=== PATIENT | female | born 1990 | race Caucasian/White ===

== ENCOUNTER 2017-02-26 16:36 | Emergency (ER) | payer OTHER ==
[~2017-02-26 16:36] MED LIST: AMOXICILLIN500 M1 PO; BACTRIM DS TABL1 TA1 PO; CLEOCIN HCL300 M1 PO; DICYCLOMINE HCL20 MG; DOXYCYCLINE150 MG PO; FLAGYL PO; LORTAB 5/500 TA1 TA1 PO; MOTRIN100 MG PO; NEXPLANON68 MG SQ; NO MEDICATIONS; PHENERGAN25 M1 PO; PHENERGAN25 MG PO; PRENATAL1 TA1 PO; PRILOSEC; TYLENOL #3 PO; ULTRAM PO; UNKNOWN BP MED; VOLTAREN50 MG PO; ZOFRAN; [UNRECOGNIZED DRUG - REMARK]
[2017-02-26] MEDS ORDERED: NO MEDICATIONS (16:47)
== END 2017-02-26 17:33 | disposition home or self-care (01) ==
LOC: SED 16:36
DX: H92.03 Otalgia, bilateral (principal)
CPT/HCPCS: 99283

== ENCOUNTER 2017-05-22 18:41 | Emergency (ER) | payer OTHER ==
[~2017-05-22] VITALS: Ht 170.2 cm; Wt 117.9 kg
--- NOTE | ~2017-05-22 | CT2 ---
[facility]. [facility] A Service of [facility] RADIOLOGY TEXT RESULTS PATIENT: OMAR NAIR LOCATION: SED : [birth year] UNIT #: [id number] AGE: [address]: Maria R Keating MD SEX: F ORDER DR: [id number] [address] [address] [id number] E MR#: [id number] Acc #: [id number] NAME: OMAR NAIR. : 1990 SEX: F STUDY DATE/TIME: 05/22/2017 22:36 UNIT: SED ROOM: STUDY DESCRIPTION: CT Abd and Pelv W Cont Attending Physician: Maria R Keating M.D. Ordering Physician: Maria R Keating M.D. Primary Care Physician: Tyson Alicia M.D. MEDICAL IMAGING REPORT This report is preliminary unless electronic signature is present. EXAM CT abdomen and pelvis with contrast 05/22/2017 HISTORY 27-year-old female with right lower quadrant abdominal pain for [address] days[address] abdomen and pelvis 07/06/2012. TECHNIQUE Helical scan performed through the abdomen and pelvis following administration of IV contrast. Coronal and sagittal reformatted images. This CT examination was performed with one or more of the following radiation dose reduction techniques: automatic exposure control, adjustment of mA and/or kV according to patient size, and iterative reconstruction. FINDINGS Visualized lung bases are unremarkable. The liver, spleen, pancreas, both adrenal glands, and both kidneys are within normal limits. Gallbladder surgically absent. Abdominal aorta normal in course and caliber without dissection. Small bowel is unremarkable without obstruction. Appendix not clearly visualized, but no pericecal inflammation. There is some minimal hazy inflammatory stranding in the fat anterior to the ascending colon. This is nonspecific and could be secondary to omental infarct or inflammation. Colon is otherwise unremarkable. No free fluid or free air. Urinary bladder, uterus, and adnexa are unremarkable. No free pelvic fluid. No acute bony abnormality. [facility] A Service of [facility] RADIOLOGY TEXT RESULTS PATIENT: OMAR NAIR LOCATION: SED : 92 UNIT #: [id number] AGE: [address]: Maria R Keating MD SEX: F ORDER DR: IMPRESSION 1. Appendix not clearly visualized. No pericecal inflammation. 2. Minimal hazy inflammatory stranding in the fat along the anterior aspect of the ascending colon. This is nonspecific and could be secondary to some focal fat inflammation or omental infarct. This is of uncertain clinical significance. No free fluid or free air. 3. Cholecystectomy. 4. No other acute findings. Dictated by... David Siddiqui M.D. THIS IS AN ELECTRONICALLY VERIFIED REPORT David Siddiqui M.D. at 05/23/2017 3:19 PM JULIO/halina TD: 05/23/2017 12:13 JOB #: [id number] MEDICAL IMAGING REPORT Page 1 of 1
[2017-05-22 20:11] LABS: BASOPHIL# 0.1 X10e3 (0-0.3); EOSINOPHIL# 0.1 X10e3 (0-0.7); EOSINOPHIL% 1.3 % (0.0-7.0); HEMATOCRIT 39.3 % (35.0-45.0); HEMOGLOBIN 13.4 gm/dL (12.0-16.0); LYMPHOCYTE# 3.5 X10e3 (1.0-3.5); LYMPHOCYTE% 30.3 % (17.0-45.0); MEAN CELL VOLUME 91.6 FL (83-96); MEAN CORPUSCULAR HEMOGLOBIN 31.2 PG (28-34); MEAN CORPUSCULAR HGB CONC 34.1 g/dL (30-36); MEAN PLATELET VOLUME 8.9 FL (6.5-11.5); MONOCYTE# 0.7 X10e3 (0-1.0); MONOCYTE% 6.1 % (3.0-12.0); NEUTROPHIL% 61.3 % (40-75); PLATELET COUNT 232 X10e3 (140-420); RED BLOOD COUNT 4.29 X10e (3.90-5.30); RED CELL DISTRIBUTION WIDTH 13.6 % (11.0-15.5); WHITE BLOOD COUNT 11.5 X10e3 (4.0-10.5)
[2017-05-22 20:18] LABS: DIFF IND NO
[2017-05-22 20:26] LABS: ALBUMIN SERUM 3.9 g/dL (3.5-5.0); ALKALINE PHOSPHATASE 33 U/L (32-92); ALT (SGPT) 19 U/L (10-40); AMYLASE 19 U/L (0-46); AST (SGOT) 17 U/L (10-42); BILIRUBIN,TOTAL 0.6 mg/dL (0.2-2.0); BLOOD UREA NITROGEN 10 mg/dL (9-23); BUN/CREATININE RATIO 16.66; CALCIUM SERUM 8.9 mg/dL (8.4-10.2); CARBON DIOXIDE 27 mmol/L (22-31); CHLORIDE 104 mmol/L (100-111); CREATININE SERUM 0.6 mg/dL (0.6-1.4); GLOM FILT RATE Estimated 126.7 mL/min (>60); GLUCOSE FASTING 86 mg/dL (70-110); LIPASE 48 U/L (22-51); PROTEIN TOTAL SERUM 7.3 g/dL (6.0-8.3); SODIUM 136 mmol/L (135-145)
[2017-05-22 20:27] LABS: BILIRUBIN, DIRECT <0.1 mg/dL (0.0-0.2); BILIRUBIN,INDIRECT 0.5 mg/dL (0.0-0.9)
[2017-05-22 21:14] LABS: URINE SOURCE CLEAN CATCH
[2017-05-22 21:16] LABS: URINE APPEARANCE CLEAR; URINE BILIRUBIN NEG (NEG); URINE BLOOD NEG (NEG); URINE COLOR YELLOW; URINE GLUCOSE NEG (NORM); URINE KETONE NEG (NEG); URINE LEUKOCYTE ESTERASE TRACE (NEG); URINE NITRATE NEG (NEG); URINE PROTEIN NEG (NEG); URINE UROBILINOGEN 0.2 MG/DL (NORM)
[2017-05-22 21:17] LABS: MICRO INDICATED? YES
[2017-05-22 21:19] LABS: CULTURE INDICATED? NO; URINE BACTERIA NEG (NEG); URINE SQUAMOUS EPITHELIAL CELL OCCAS /[HPF]; URINE TRANSITIONAL EPI CELLS FEW /[HPF]
[2017-05-22 21:20] LABS: URINE AMORPHOUS SEDIMENT AMORP URATES
== END 2017-05-23 00:02 | disposition home or self-care (01) ==
LOC: SED 18:41
PROVIDERS: Emergency Medicine
DX: L02.211 Cutaneous abscess of abdominal wall (principal); Z90.49 Acquired absence of other specified parts of digestive tract
CPT/HCPCS: 36415; 74177; 80048; 80076; 81003; 82150; 83690; 84703; 85025; 96360; 99284; Q9967